=== PATIENT | female | born 1935 ===

== ENCOUNTER 2020-01-08 05:15 | Day surgery (SDC) | payer OTHER ==
[~2020-01-08 05:15] MED LIST: CALCIUM500 M2 PO; IRBESARTAN300 MG PO; MEGARED OMEGA-1 EAC2 PO; NORVASC5 MG PO
[2020-01-08] MEDS ORDERED: ULTRACET PO (08:58)
== END 2020-01-08 11:55 | disposition home or self-care (01) ==
LOC: CIR.AMB 05:15 → ADM 09:00 → CIR.AMB 09:00
DX: C20 Malignant neoplasm of rectum (principal)
CPT/HCPCS: 36561; C1751